=== PATIENT | female | born 1970 | race Hispanic/Latino ===

== ENCOUNTER → 2020-05-08 | Day surgery (SDC) | payer OTHER ==
[~2020-05-08] MED LIST: ARTHRITIS PAIN650 M3 PO; HYOSCYAMINE 0.125 MG TAB ONE; LEVOTHYROXINE50 MCG PO; METOCLOPRAMIDE HCL 10 MG/2ML VIAL ONE; OMEGA 3 1,0001 EACH PO; ONDANSETRON HCL INJ 2MG/ML 2ML 2 MG/ML VIAL ONE; PROPOFOL IV EMULSION 10 MG/ML 20 ML VIAL ONE
[2020-05-08 13:40] VITALS: BP 117/68
--- NOTE | 2020-05-08 14:30 | Operative Report ---
DATE OF PROCEDURE: 05/08/2020 SURGEON: Dewayne Humphrey MD PROCEDURE: An EGD with esophageal dilatation and biopsies and colonoscopy. INDICATIONS FOR EGD: Dysphagia to solids, heartburn, and bloating. INDICATIONS FOR COLONOSCOPY: Rectal bleeding, constipation. MEDICATIONS: The patient was done under MAC. Please see anesthesiologist's note. PROCEDURE IN DETAIL: With the patient in left lateral decubitus position, a flexible fiberoptic Olympus gastroscope was introduced into the esophagus under direct visualization without any difficulty. There was some patchy inflammation in the distal esophagus. The esophagus was then dilated to size 52-Congol[place] Robert. Gastritis, biopsied, biopsies sent to stain for H pylori. Pylorus was of normal contour and shape, was intubated with ease and the scope was advanced all the way to the second portion of the duodenum. The scope was then withdrawn slowly. Mucosa overlying the proximal second portion and duodenal bulb grossly appeared to be within normal limits. The scope was then withdrawn back into the stomach and retroflexed, the mucosa overlying the fundus and cardia appeared to be within normal limits. The scope was then straightened out, it was subsequently withdrawn, the patient tolerated the procedure well. IMPRESSION: 1. Distal esophagitis, mild. 2. Esophagus dilated to size 52-Cong[place] Robert. 3. Gastritis, biopsied. Biopsies sent to stain for Helicobacter pylori. PLAN: Follow up histology. Initiate Protonix 40 mg one p.o. q.a.m. a.c. Check celiac panel. The patient was then turned around after adequate lubrication of the anal canal. A flexible fiberoptic Olympus colonoscope was inserted into the rectum with ease and advanced all the way to the cecum. There were some retained stools in the cecum and the proximal ascending colon. Some washings were carried out and visualization was fair. The scope was then withdrawn slowly whatever was visualized the mucosa overlying the ascending, transverse, descending, sigmoid, and rectum appeared to be within normal limits. There were some scattered diverticular disease, primarily in the sigmoid and distal descending. The scope was then retroflexed into the distal rectum. Small internal hemorrhoids were noted, none of which was actively bleeding. The scope was then straightened out, it was subsequently withdrawn. The patient tolerated the procedure well. IMPRESSION: 1. Diverticulosis. 2. Internal hemorrhoids, none actively bleeding. PLAN: Initiate high-fiber low-fat diet. Initiate high-fiber supplement. Check TSH. Start MiraLAX 17 g p.o. b.i.d. The patient might benefit from a followup colonoscopy in 5 to 10 years. MD PAKO Craig/JAVIER /[id number] cc: MD Dewayne Casiano MD
== END | disposition home or self-care (01) ==
LOC: OR 10:27
PROVIDERS: ATTEND Internal Medicine Gastroenterology
DX: K20.9 Esophagitis, unspecified (principal); E03.9 Hypothyroidism, unspecified; K21.9 Gastro-esophageal reflux disease without esophagitis; K29.70 Gastritis, unspecified, without bleeding; K57.30 Diverticulosis of large intestine without perforation or abscess without bleeding; K64.8 Other hemorrhoids; Z11.59 Encounter for screening for other viral diseases
CPT/HCPCS: 36415; 43239; 43450; 45378; 82784; 83516; 84443; 86256; 87635; J2405; J2765

== ENCOUNTER → 2020-05-29 | Outpatient (CLI) | payer OTHER ==
[~2020-05-29] MED LIST changes: -HYOSCYAMINE 0.125 MG TAB ONE; -METOCLOPRAMIDE HCL 10 MG/2ML VIAL ONE; -ONDANSETRON HCL INJ 2MG/ML 2ML 2 MG/ML VIAL ONE; -PROPOFOL IV EMULSION 10 MG/ML 20 ML VIAL ONE
--- NOTE | 2020-05-29 15:40 | Diagnostic Imaging Report ---
Hepatobiliary Scan with Gallbladder Ejection Fraction Clinical information: Upper abdominal pain Report: Following intravenous administration of 6 millicuries of Tc-99m mebrofenin, dynamic images of the abdomen in the anterior projection were obtained through 60 minutes. Sincalide (CCK analog) 1.5 micrograms was administered intravenously over 30 minutes with additional imaging for determination of gallbladder ejection fraction. Perfusion to the liver is normal. Extraction of tracer from the blood pool by the liver parenchyma is normal. Tracer is seen promptly within the biliary tract. The gallbladder begins to fill by 25 minutes post-injection of tracer and fills adequately. Tracer is seen in the small bowel by 14 minutes. The gallbladder ejection fraction with administration of sincalide is 92% (normal greater than 40%). Impression: 1. Filling of the gallbladder excludes the diagnosis of acute cystic duct obstruction/acute cholecystitis. 2. Normal gallbladder ejection fraction of 92% does not support the clinical diagnosis of chronic cholecystitis/gallbladder dyskinesia. Signed by: Dr. Nica Vickers M.D. on 05/29/2020 3:37 PM
== END ==
LOC: NM 08:54
PROVIDERS: ATTEND Internal Medicine Gastroenterology
DX: R10.10 Upper abdominal pain, unspecified (principal)
CPT/HCPCS: 78227; A9537

== ENCOUNTER → 2021-03-06 | Outpatient (CLI) | payer OTHER ==
[~2021-03-06] MED LIST changes: +BUPROPION XL150 MG PO; +PHENTERMINE H37.5 M1 PO
== END ==
LOC: DX 14:01 → EDSTATUS 03-11 11:30
PROVIDERS: ATTEND Internal Medicine Gastroenterology
DX: Z01.812 Encounter for preprocedural laboratory examination (principal); Z01.818 Encounter for other preprocedural examination; R13.10 Dysphagia, unspecified; Z20.822 Contact with and (suspected) exposure to COVID-19
CPT/HCPCS: 93005; U0002

== ENCOUNTER → 2021-06-23 | Outpatient (CLI) | payer OTHER | LOC: NM 06-20 09:02 | PROVIDERS: ATTEND Internal Medicine Gastroenterology | DX: R10.11 Right upper quadrant pain (principal) | CPT/HCPCS: 78227; A9537 ==

== ENCOUNTER → 2021-08-21 | Day surgery (SDC) | payer OTHER ==
[~2021-08-21] MED LIST changes: +CRESTOR10 MG PO; +METOCLOPRAMIDE HCL 10 MG/2ML VIAL ONE
[2021-08-21 10:00] VITALS: BP 128/75
== END | disposition home or self-care (01) ==
LOC: ENDO 06:14
PROVIDERS: ATTEND Internal Medicine Gastroenterology
DX: K20.90 Esophagitis, unspecified without bleeding (principal); K29.50 Unspecified chronic gastritis without bleeding; K21.9 Gastro-esophageal reflux disease without esophagitis; E03.9 Hypothyroidism, unspecified; R73.03 Prediabetes; E78.00 Pure hypercholesterolemia, unspecified; R03.0 Elevated blood-pressure reading, without diagnosis of hypertension; Z01.810 Encounter for preprocedural cardiovascular examination; Z01.812 Encounter for preprocedural laboratory examination; Z20.822 Contact with and (suspected) exposure to COVID-19; Z68.30 Body mass index [BMI] 30.0-30.9, adult
CPT/HCPCS: 43239; 43450; 93005; J2765; U0002

== ENCOUNTER → 2021-11-05 | Outpatient (CLI) | payer OTHER ==
[~2021-11-05] MED LIST changes: +IOPAMIDOL 370 MG/ML 200 ML INFUS..BTL INJ ONE; -METOCLOPRAMIDE HCL 10 MG/2ML VIAL ONE; +SODIUM CHLORIDE 0.9% 50ML 50 ML ONE
== END ==
LOC: CT 15:59
PROVIDERS: ATTEND Internal Medicine Gastroenterology
DX: R13.10 Dysphagia, unspecified (principal); R10.10 Upper abdominal pain, unspecified
CPT/HCPCS: 74160; Q9967

== ENCOUNTER → 2021-11-07 | Outpatient (CLI) | payer OTHER ==
[~2021-11-07] MED LIST changes: -IOPAMIDOL 370 MG/ML 200 ML INFUS..BTL INJ ONE; -SODIUM CHLORIDE 0.9% 50ML 50 ML ONE
== END ==
LOC: DX 09:34
PROVIDERS: ATTEND Internal Medicine Gastroenterology
DX: R13.10 Dysphagia, unspecified (principal)
CPT/HCPCS: 74230; U0002

== ENCOUNTER → 2023-10-19 | Day surgery (SDC) | payer OTHER ==
[2023-10-18 12:42] LABS: ANION GAP 16.5 mmol/L (8-16); CALCIUM 9.8 mg/dL (8.4-10.2); CREATININE, SERUM 0.86 mg/dL (0.57-1.11); POTASSIUM 4.5 mmol/L (3.5-5.1)
[~2023-10-19] MED LIST changes: +ACETAMINOPHEN/CODEINE 300MG - 30MG TAB ONE; +ACETAMINOPHEN/CODEINE 300MG - 30MG TAB PO ONE; +DEXAMETHASONE SOD PHOS INJ 4 MG/ML SDV ONE; +LACTATED RINGER'S 1,000 ML ONE; +LIDOCAINE HCL 1% 2 ML AMP ONE; +LIDOCAINE HCL 2% LOCAL INJ 5 ML SDV VIAL INJ ONE; +METFORMIN HCL850 MG PO; +ONDANSETRON HCL INJ 2MG/ML 2ML 2 MG/ML VIAL ONE; +PROPOFOL IV EMULSION 10 MG/ML 20 ML VIAL ONE; +SEVOFLURANE INHAL SOLN 250 ML PEN BTL ONE; +TRULICITY1.5 MG/0.5 SC; +ZETIA10 MG PO
[2023-10-19 09:29] VITALS: TEMP 98.4
[2023-10-19 11:07] VITALS: BP 153/78; PULSE 67; RESP 18; O2SAT 98
== END | disposition home or self-care (01) ==
LOC: OR 05:20
PROVIDERS: ATTEND Specialist
DX: G56.03 Carpal tunnel syndrome, bilateral upper limbs (principal); E11.9 Type 2 diabetes mellitus without complications; Z79.85 Long-term (current) use of injectable non-insulin antidiabetic drugs; Z79.84 Long term (current) use of oral hypoglycemic drugs; E78.5 Hyperlipidemia, unspecified; E03.9 Hypothyroidism, unspecified; G47.30 Sleep apnea, unspecified; Z01.812 Encounter for preprocedural laboratory examination; Z79.899 Other long term (current) drug therapy
CPT/HCPCS: 29848; 36415 ×2; 80048; 82948; 93005; J0690; J1100; J2001 ×2; J2405; J2704; J7121

== ENCOUNTER → 2025-01-11 | Day surgery (SDC) | payer OTHER ==
[~2025-01-11] MED LIST changes: -ACETAMINOPHEN/CODEINE 300MG - 30MG TAB ONE; -ACETAMINOPHEN/CODEINE 300MG - 30MG TAB PO ONE; +CELEBREX100 MG PO; -DEXAMETHASONE SOD PHOS INJ 4 MG/ML SDV ONE; +DIGOXIN125 MCG PO; +ESTRADIOL1 MG PO; +FENOFIBRATE145 MG PO; +FENTANYL CITRATE/PF 100MCG/2 ML INJ ONE; +HYOSCYAMINE SULFATE 0.5 MG/ML INJ ONE; -LIDOCAINE HCL 1% 2 ML AMP ONE; +METOCLOPRAMIDE HCL 10 MG/2ML VIAL ONE; -ONDANSETRON HCL INJ 2MG/ML 2ML 2 MG/ML VIAL ONE; +OZEMPIC0.25 MG/02 SC; +PROPOFOL IV EMULSION 50 ML IV ONE; -SEVOFLURANE INHAL SOLN 250 ML PEN BTL ONE
[2025-01-11 08:55] VITALS: BP 132/87; PULSE 65; RESP 18; O2SAT 99
[2025-01-16 07:12] LABS: ENDOMYSIAL ANTIBODIES, IGA Negative (Negative)
[2025-01-16 15:12] LABS: IMMUNOGLOBULIN A 336 mg/dL (87-352); TISSUE TRANSGLUTAMINASE IGA AB <2 U/mL (0-3)
== END | disposition home or self-care (01) ==
LOC: OR 06:06
PROVIDERS: ATTEND Internal Medicine Gastroenterology
DX: K29.70 Gastritis, unspecified, without bleeding (principal); D12.4 Benign neoplasm of descending colon; K22.2 Esophageal obstruction; K31.84 Gastroparesis; K20.90 Esophagitis, unspecified without bleeding; K31.89 Other diseases of stomach and duodenum; K57.30 Diverticulosis of large intestine without perforation or abscess without bleeding; K64.8 Other hemorrhoids; K76.0 Fatty (change of) liver, not elsewhere classified; E11.9 Type 2 diabetes mellitus without complications; I49.9 Cardiac arrhythmia, unspecified; E78.5 Hyperlipidemia, unspecified; M19.90 Unspecified osteoarthritis, unspecified site; M06.9 Rheumatoid arthritis, unspecified; Z01.810 Encounter for preprocedural cardiovascular examination; Z79.84 Long term (current) use of oral hypoglycemic drugs; Z79.85 Long-term (current) use of injectable non-insulin antidiabetic drugs; Z79.899 Other long term (current) drug therapy
CPT/HCPCS: 43239; 43450; 45385; 82784; 83516; 86256; 93005; J1980; J2003; J2470; J2704 ×2; J2765; J3010; J7121; 45378